=== PATIENT | female | born 1980 | race Caucasian/White ===

== ENCOUNTER 2022-02-09 10:31 | Emergency (ER) | payer SELFPAY ==
[2022-02-09 11:07] VITALS: BP 106/61
--- NOTE | 2022-02-09 14:49 | Emergency Department Report ---
ED General Adult HPI - General Chief complaint: Adult Asthma Stated complaint: ASTHMA Source: patient Mode of arrival: Ambulatory Limitations: No Limitations - History of Present Illness Initial comments: Patient is a 41-year-old -[place] female with a history of asthma presents to the ED requesting for a referral to her primary care physician for her chronic asthma. Patient states that she had COVID-19 viral infection about 8 months ago and since then she continues to experience more frequent asthma exacerbations. Patient states that she requires a primary care physician to be able to assess her for her disability in order for her not to lose her job because of frequent absenteeism from work due to frequent asthma attacks. Patient denies dizziness, syncope, chest pain or shortness of breath, at this time. Patient is a denies fever, chills, nasal and sinus congestion, nausea and vomiting, wheezing or headache, abdominal pain, diarrhea, or lightheadedness. MD Complaint: Chronic asthma, request referral to primary care physician -: Gradual, month(s) (3) Location: chest Radiation: non-radiation Severity scale (0 -10): 2 Quality: dull Consistency: intermittent Improves with: none Worsens with: none Associated Symptoms: denies other symptoms, cough. denies: confusion, chest pain, diaphoresis, fever/chills, headaches, malaise, nausea/vomiting, rash, seizure, shortness of breath, syncope, weakness, other Treatments Prior to Arrival: none - Related Data Previous Rx's Medication Instructions Recorded Last Taken Type Albuterol Sulfate [Proventil Hfa] 1 - 2 puff IH Q6H PRN #1 inh 02/09/22 Unknown Rx Benzonatate [Tessalon Perles] 100 mg PO Q8HR #30 cap 02/09/22 Unknown Rx Montelukast [Singulair] 10 mg PO QPM #30 tablet 02/09/22 Unknown Rx predniSONE [Deltasone] 40 mg PO QDAY #12 tab 02/09/22 Unknown Rx ED Review of Systems ROS: Stated complaint: ASTHMA Other details as noted in HPI Constitutional: denies: chills, fever Eyes: denies: eye pain, eye discharge, vision change ENT: denies: ear pain, throat pain, dental pain, congestion Respiratory: cough. denies: shortness of breath, wheezing Cardiovascular: denies: chest pain, palpitations Endocrine: no symptoms reported Gastrointestinal: denies: abdominal pain, nausea, vomiting, diarrhea Genitourinary: denies: urgency, dysuria, discharge Musculoskeletal: denies: back pain, joint swelling, arthralgia Skin: denies: rash, lesions Neurological: denies: headache, weakness, paresthesias Psychiatric: denies: anxiety, depression Hematological/Lymphatic: denies: easy bleeding, easy bruising ED Past Medical Hx - Past Medical History Previous Medical History?: Yes Hx Asthma: Yes - Surgical History Past Surgical History?: Yes Additional Surgical History: c section x 2 - Medications Home Medications: Home Medications Medication Instructions Recorded Confirmed Last Taken Type Albuterol Sulfate [Proventil Hfa] 1 - 2 puff IH Q6H PRN #1 inh 02/09/22 Unknown Rx Benzonatate [Tessalon Perles] 100 mg PO Q8HR #30 cap 02/09/22 Unknown Rx Montelukast [Singulair] 10 mg PO QPM #30 tablet 02/09/22 Unknown Rx predniSONE [Deltasone] 40 mg PO QDAY #12 tab 02/09/22 Unknown Rx ED Physical Exam - General Limitations: No Limitations General appearance: alert, in no apparent distress - Head Head exam: Present: atraumatic, normocephalic, normal inspection - Eye Eye exam: Present: normal appearance, PERRL, EOMI Pupils: Present: normal accommodation - ENT ENT exam: Present: normal exam, normal orophraynx, mucous membranes moist, TM's normal bilaterally, normal external ear exam - Neck Neck exam: Present: normal inspection, full ROM. Absent: tenderness - Respiratory Respiratory exam: Present: normal lung sounds bilaterally. Absent: respiratory distress, wheezes, rales, rhonchi, chest wall tenderness, accessory muscle use, decreased breath sounds, prolonged expiratory - Cardiovascular Cardiovascular Exam: Present: regular rate, normal rhythm, normal heart sounds. Absent: systolic murmur, diastolic murmur, rubs, gallop - GI/Abdominal GI/Abdominal exam: Present: soft, normal bowel sounds. Absent: tenderness, guarding, rebound, hyperactive bowel sounds, hypoactive bowel sounds, organomegaly, mass - Extremities Exam Extremities exam: Present: normal inspection, full ROM, normal capillary refill. Absent: tenderness - Back Exam Back exam: Present: normal inspection, full ROM. Absent: tenderness, CVA tend erness (R), CVA tenderness (L), muscle spasm, paraspinal tenderness, vertebral tenderness - Neurological Exam Neurological exam: Present: alert, oriented X3, CN II-XII intact, normal gait, reflexes normal - Psychiatric Psychiatric exam: Present: normal affect, normal mood - Skin Skin exam: Present: warm, dry, intact, normal color. Absent: rash ED Course Vital Signs 02/09/22 11:06 Temperature 98.1 F Pulse Rate 74 Respiratory 18 Rate Blood Pressure 106/61 O2 Sat by Pulse 99 Oximetry ED Medical Decision Making - Medical Decision Making This is a 41-year-old -[place] female with a history of asthma presents to the ED requesting for a referral to her primary care physician for her chronic asthma. Patient states that she had COVID-19 viral infection about 8 months ago and since then she continues to experience more frequent asthma exacerbations. Patient states that she requires a primary care physician to be able to assess her for her disability in order for her not to lose her job because of frequent absenteeism from work due to frequent asthma attacks. Patient denies dizziness, syncope, chest pain or shortness of breath, at this time. In the ED, patient is alert and oriented x3 and is not in any distress. Patient is hemodynamically stable with oxygen saturation of 99% in room air. Patient was discharged home and given refills of her medications and also given a referral to primary care physicians in order to follow-up with for further assistance. Patient was advised return to the ED immediately if her symptoms ge t worse. - Differential Diagnosis Chronic asthma; chronic bronchitis; chronic cough; URI; Critical care attestation.: If time is entered above; I have spent that time in minutes in the direct care of this critically ill patient, excluding procedure time. ED Disposition Clinical Impression: Shortness of breath Chronic asthma without complication Qualifiers: Asthma severity: unspecified severity Asthma persistence: unspecified Qualified Code(s): J45.909 - Unspecified asthma, uncomplicated Disposition: HOME / SELF CARE / HOMELESS Is pt being admited?: No Does the pt Need Aspirin: No Condition: Stable Instructions: Asthma (ED), Shortness of Breath, Adult, [id number], Cough, Adult, [id number], Asthma, Adult, [id number] Additional Instructions: Take medication with food, drink plenty of fluids, follow-up with your primary care physician in 7 to 10 days for reevaluation. Return to the ED immediately if symptoms get worse. Prescriptions: predniSONE [Deltasone] 40 mg PO QDAY #12 tab Albuterol Sulfate [Proventil Hfa] 1 - 2 puff IH Q6H PRN #1 inh PRN Reason: Shortness Of Breath Montelukast [Singulair] 10 mg PO QPM #30 tablet Benzonatate [Tessalon Perles] 100 mg PO Q8HR #30 cap Referrals: [facility] [Provider Group] - 3-5 Days [facility] [Outside] - 3-5 Days SHANNON DASILVA MD [Staff Physician] - 3-5 Days Forms: Work/School Release Form(ED) Time of Disposition: 14:49 Print Language: MARTINIQUAIS
== END 2022-02-09 22:15 | disposition home or self-care (01) ==
LOC: ED 10:31
DX: J45.909 Unspecified asthma, uncomplicated (principal); R06.02 Shortness of breath
CPT/HCPCS: 99282